=== PATIENT | male | born 1945 | race Caucasian/White ===

== ENCOUNTER 2017-02-27 05:29 | Day surgery (SDC) | payer MEDICARE, BC ==
[2017-02-26 16:27] LABS: BASOPHILS 0.2 % (0-2); EOSINOPHILS 1.9 % (0-7); HEMATOCRIT 30.7 % (42.0-54.0); HEMOGLOBIN 9.4 g/dL (13.5-17.5); IMMATURE GRANULOCYTES 0.4 % (0-5); LYMPHOCYTES 15.5 % (15-50); MCH 30.5 pg (26.0-34.0); MCHC 30.6 g/dL (31.0-37.0); MCV 99.7 fL (80.0-100.0); MEAN PLATELET VOLUME 8.7 fL (7.4-10.4); MONOCYTES 12.1 % (2-11); NEUTROPHILS 69.9 % (40-80); PLATELET COUNT 71 10x3/uL (130-400); RBC 3.08 10x6/uL (4.20-6.10); RDW 16.5 % (11.5-14.5); WBC 5.3 10x3/uL (4.8-10.8)
[2017-02-26 16:31] LABS: APTT 37.1 SECONDS (22.8-39.4); INR 1.1 (0.85-1.17); PROTIME 14.1 SECONDS (11.6-15.0)
[2017-02-26 16:46] LABS: ANION GAP 16.7 mmol/L (8-16); CALCIUM 8.4 mg/dL (8.5-10.1); CARBON DIOXIDE 28.2 mmol/L (21.0-32.0); CREATININE - SERUM 6.5 mg/dL (0.6-1.3); POTASSIUM - SERUM 4.9 mmol/L (3.5-5.1)
[2017-02-26 17:38] LABS: PLATELET ESTIMATE DECREASED
[~2017-02-27] VITALS: Ht 175.3 cm; Wt 101.2 kg
--- NOTE | ~2017-02-27 | OP ---
PATIENT NAME: LISA CARROLL MEDICAL RECORD: [id number] :45 LOCATION:[facility] ADMISSION DATE: SURGEON: MEGHAN PEDRAZA MD DATE OF OPERATION: 02/27/2017 REFERRED PHYSICIANS: Neal Cameron MD and Neal Ahn MD. PREOPERATIVE DIAGNOSES: Mechanical complication of left arm AV fistula and ALLERGY TO IODINATED CONTRAST with history of severe reactions despite premedication with steroids and antihistamines. ADDITIONAL DIAGNOSIS: End-stage renal disease and dependence on chronic hemodialysis. POSTOPERATIVE DIAGNOSES: 1. Mechanical complication of left arm AV fistula and ALLERGY TO IODINATED CONTRAST with history of severe reactions despite premedication with steroids and antihistamines. 2. End-stage renal disease and dependence on chronic hemodialysis. OPERATION PERFORMED: Left arm AV fistulogram with balloon angioplasty of stenosis in the proximal arm or in the corresponding upper one-third of the humerus, just proximal to the cannulation aneurysms and mild stenoses and irregularity of the cephalic arch. SURGEON: Meghan Pedraza MD. ANESTHESIA: General endotracheal per [employer]OCIATE [employer]ORNEY. PREOPERATIVE NOTE: Mr. Carroll is a very nice 72-year-old white male patient with end-stage renal disease, who has been dialyzing successfully now for some time with the left arm brachiocephalic AV fistula. 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 He was actually seen by Dr. Cameron, who prior to angiography obtained a history of intense iodine contrast allergy and prior severe reactions despite appropriate premedication and he was referred to me and is brought to the hospital today to have this procedure done under general endotracheal anesthesia to be certain that we are protecting his airway. He has evidence of a proximal cephalic vein or cephalic arch lesion. DESCRIPTION OF PROCEDURE: The patient was premedicated as per protocol beginning yesterday with a total of 3 doses of prednisone and today was additionally given Benadryl and Pepcid. After general endotracheal anesthesia was administered, the patient was prepped and draped in a sterile manner. The left arm brachiocephalic AV fistula was accessed with micropuncture technique just above the antecubital space. Contrast injection was then performed, which demonstrated an 80% stenosis of the cephalic vein just proximal to the more proximal of 2 cannulation aneurysms in the upper third of the humerus. Over a guidewire, I advanced a diagnostic angled catheter and performed selective injection then pulled back from the superior vena cava through the brachiocephalic and subclavian veins and demonstrated there was no central stenosis. The patient did have irregularities of the cephalic arch. The cephalic arch was dilated then without difficulty with a 10-mm diameter angioplasty balloon and a much more significant tighter stenosis in the cephalic vein in the upper third of the arm was dilated with the same 10-mm angioplasty OPERATIVE REPORT [id number] LISA CARROLL balloon achieving full effacement. Subsequent contrast injection revealed essentially 0% residual stenoses and improved flow. Palpably, the fistula was less pulsatile. A retrograde study was then done with proximal fistula occlusion and the arterial anastomosis seemed to be wide open, actually quite large, though there was good flow in the brachial artery above and below. The brachial artery was smooth and evidenced no sign of atherosclerotic disease. There was bifurcation with flow distally in both the radial and ulnar arteries. The 7-Stateless introducer was removed and the puncture site sutured with a [id number] 4-0 Prolene and direct pressure held for a brief period of time. After which, the site was dressed with Avitene Ultrafoam, Cavilon and Tegaderm. The patient was awakened and extubated. Evidenced no sign of any type of significant allergic reaction intraoperative, it was not felt that there was likely be any postoperative airway compromise or other significant reaction, at least none predicted. The patient is to be returned to the outpatient department and discharged to home following his observation in recovery. The patient will be instructed to continue his usual home medications and his 3 times a week dialysis schedule at the [facility] in [place], [place]. He need not return to [facility] for routine followup, but I would ask that he be referred back to me at the earliest sign of recurrent venous stenosis or outflow obstruction or any other problem which might require angiography. I think that he should have future iodinated contrast injections done in the hospital in a similar situation with general endotracheal anesthesia rather than trying to do this with IV sedation outpatient at [facility]. TRANSINT:[id number] Voice Confirmation ID: [id number] DOCUMENT ID: [id number] MEGHAN PEDRAZA MD CC: NEAL CAMERON MD and NEAL AHN MD [id number] DICTATION DATE: 02/27/17 1002 DIRECTOR INTELLIGENCE ANALYSIS PROGRAMS: 02/27/17 1131 [facility] 02/27/17 [facility] [address] [place] [address]
[~2017-02-27 05:29] MED LIST: LEVOTHYROXINE75 MCG PO; MIDODRINE HCL5 MG PO; MIRALAX17 GM PO; NEURONTIN600 MG PO; PROTONIX40 MG PO; RENAL PO; RENVELA800 MG PO; SENSIPAR30 MG PO; STOOL SOFTENER100 M1 PO; ZOVIRAX400 MG PO
[2017-02-27 07:52] VITALS: BP 121/66; Ht 175.3 cm; Wt 101.2 kg
--- NOTE | 2017-02-27 11:54 | NUR ---
1045 ICE PACK TO RIGHT CHEEK AND LEFT EYE, IV DC WITH CATHER TIP INTACT,SPOKE WITH LATOYA RUBALCAVA GIVEN DR MILO ANDUJAR
== END 2017-02-27 11:47 | disposition home or self-care (01) ==
LOC: D.OPS 05:29 → D.PAN 08:00 → D.OPS 11:47
PROVIDERS: Surgery
DX: N18.6 End stage renal disease (principal); Z99.2 Dependence on renal dialysis; Z68.33 Body mass index [BMI] 33.0-33.9, adult; Z01.812 Encounter for preprocedural laboratory examination; Z01.810 Encounter for preprocedural cardiovascular examination; T82.41XA Breakdown (mechanical) of vascular dialysis catheter, initial encounter